=== PATIENT | male | born 1975 | race Caucasian/White ===

== ENCOUNTER 2016-06-10 03:00 | Emergency (ER) | payer BC ==
[~2016-06-10] VITALS: Ht 172.7 cm; Wt 89.5 kg
[2016-06-10 03:08] VITALS: Ht 172.7 cm; Wt 89.5 kg
--- NOTE | 2016-06-10 05:27 | ERD ---
ER Documentation Chief Complaint Date/Time DATE: 06/10/16 TIME: 05:27 Chief Complaint R ear pain x 1 day 8/10, no fever or congestion HPI 39-year-old male presents with chief complaint of constant right ear pain 1 day. Denies fever, ear discharge, loss in hearing, and trauma. Currently rates his pain an 8 out of 10, has not taken any medications for pain relief. Pain aggravated by sleeping on right side. Reports recent URI. Denies recent antibiotic use. ROS All systems reviewed and are negative except as per history of present illness. Medications Home Meds Active Scripts Ibuprofen* (Motrin*) 600 Mg Tab, 600 MG PO Q6, #30 TAB Prov:Sherry Sousa PA-C 06/10/16 Amoxicillin* (Amoxicillin*) 500 Mg Cap, 500 MG PO BID for 7 Days, #14 CAP Prov:Sherry Sousa PA-C 06/10/16 Physical Exam Vitals Vital Signs Date Time Temp Pulse Resp B/P Pulse Ox O2 Delivery O2 Flow Rate FiO2 06/10/16 03:08 98.7 75 18 139/74 97 Physical Exam GENERAL: Non-toxic. No apparent signs of distress. HEENT: Atraumatic. Bilateral eyes are PERRL EOM intact. Normal conjunctiva, no injection. No eyelid or lower eyelid swelling noted. Ears: Right tympanic membrane is erythematous and dull to light reflex. Left tympanic membrane is normal.. No ear canal swelling. No ear discharge. Nose: no nasal discharge. Throat: Oropharynx normal. Tongue pink and moist. No tonsillar swelling or tonsillar exudates. No lymphadenopathy. LUNGS: Clear to auscultation. No accessory muscle use. No wheezing, no crackles. No signs or symptoms of respiratory distress. HEART: Regular rate and rhythm. No murmurs, clicks, rubs or gallops. NEURO: Cranial nerves are grossly intact. Normal mental status for age. Good muscle tone. SKIN: There is no apparent rash, petechiae, erythema or swelling. Good skin turgor. Procedures/MDM Patients symptoms and physical exam findings are consistent with acute otitis media. The right tympanic membrane was erythematous and dull to light reflex on exam. No ear canal swelling or discharge, making otitis externa unlikely. Patient denies any ear discharge and loss of hearing. Denies history of diabetes mellitus. I have low suspicion for malignant otitis externa, mastoiditis, foreign body in ear canal, TM perforation, meningitis, parotitis, trauma, and sepsis. I have prescribed the patient Amoxicillin, as well as Motrin for fever control/ Pain. Patient was afebrile at discharge. Was alert and in no acute distress. Stable for discharge at this time, advised to follow up with PCP in 1-2 days. Departure Diagnosis: Primary Impression: Right ear pain Additional Impression: Otitis media Otitis media type: unspecified Laterality: right Chronicity: unspecified Qualified Code: H66.91 - Right otitis media, unspecified chronicity, unspecified otitis media type Condition: Sherry Aponte PA-C Jun 10, 2016 05:27
[2016-06-10] MEDS ORDERED: IBUP-1542 PO (05:29)
[2016-06-10] MEDS ORDERED: AMO500 PO (05:29)
== END 2016-06-10 06:02 | disposition home or self-care (01) ==
LOC: FTE 03:00
DX: H92.01 Otalgia, right ear (principal); H66.91 Otitis media, unspecified, right ear
CPT/HCPCS: 99283